=== PATIENT | female | born 2000 | race Caucasian/White ===

== ENCOUNTER 2021-07-21 13:56 | Emergency (ER) | payer MEDICAID ==
[~2021-07-21] VITALS: Ht 172.7 cm; Wt 56.2 kg
[2021-07-21] MEDS ORDERED: LACTATED RINGERS 1,000 ML IV STA ×2 (14:25→15:56)
--- NOTE | 2021-07-21 14:28 | ED Abdominal Pain ---
General Stated Complaint: DEHYDRATION/VOMITING Source of Information: Patient Exam Limitations: No Limitations (MAURILIO BENJAMIN) History of Present Illness Date Seen by Provider: Jul 21, 2021 Time Seen by Provider: 14:25 Initial Comments Patient is a 20-year-old female presents ED with vomiting. Vomiting over the past 2 days. She reports at least 10+ episodes of vomiting daily that is green. Denies of any hematemesis. Decreased bowel movements and urination. She went to [facility] 2 days ago and yesterday and receive IV fluids and states she had a viral infection. She states she is having weakness and fatigue feels dehydrated. She reports mid upper abdominal discomfort described as cramping and fairly constant without radiation. No history of previous abdominal surgery. Not concern for . No vaginal bleeding, dysuria, hematuria, headache, dizziness, sore throat, ear pain. (MAURILIO BENJAMIN) Allergies and Home Medications Allergies Coded Allergies: No Known Drug Allergies (Unverified , 07/21/21) Patient Home Medication List Home Medication List Reviewed: Yes (MAURILIO BENJAMIN) Promethazine HCl (Promethazine Tablet) 25 Mg Tablet, 25 MG PO Q6H PRN for NAUSEA/VOMITING Prescribed by: KATIE MONTERROSO on 07/21/21 1610 Review of Systems Review of Systems Constitutional: No chills, No diaphoresis, No fever; malaise, weakness EENTM: No Blurred Vision, No Eye Pain, No Ear Drainage, No Mouth Pain, No Mouth Swelling Respiratory: Denies Cough, Denies Orthopnea, Denies SOA With Exertion, Denies SOA at Rest Cardiovascular: Denies Chest Pain, Denies Edema, Denies Irregular Heart Rate Gastrointestinal: Abdominal Pain; Denies Diarrhea; Nausea, Poor Appetite, Vomiting Genitourinary: Denies Burning, Denies Discharge Musculoskeletal: No back pain, No joint pain Skin: No change in color, No change in hair/nails Psychiatric/Neurological: Denies Anxiety, Denies Depressed (MAURILIO BENJAMIN) All Other Systems Reviewed Negative Unless Noted: Yes (MAURILIO BENJAMIN) Physical Exam Vital Signs Vital Signs - First Documented 07/21/21 07/21/21 14:13 16:18 Temp 36.4 Pulse 61 Resp 16 B/P (MAP) 110/62 (78) Pulse Ox 100 O2 Delivery Room Air (ANABEL BETTS MD) Vital Signs Capillary Refill : (MAURILIO BENJAMIN) Height/Weight/BMI Height: '" Weight: lbs. oz. kg; BMI Method: General Appearance: WD/WN, no apparent distress HEENT: PERRL/EOMI, normal ENT inspection, TMs normal, pharynx normal Neck: non-tender, full range of motion, supple, normal inspection Respiratory: chest non-tender, lungs clear, normal breath sounds, no respiratory distress, no accessory muscle use Cardiovascular: regular rate, rhythm, no edema, no gallop, no JVD Gastrointestinal: normal bowel sounds, soft, no organomegaly, no pulsatile mass, tenderness (Mid epigastric tenderness on palpation. 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, no motor/sensory deficits, alert, normal mood/affect, oriented x 3 Skin: normal color, warm/dry (MAURILIO BENJAMIN) Progress/Results/Core Measures Results/Orders Lab Results Laboratory Tests Test 07/21/21 14:30 07/21/21 14:56 07/21/21 15:02 Range/Units White Blood Count 11.1 H 4.3-11.0 10^3/uL Red Blood Count 4.62 3.80-5.11 10^6/uL Hemoglobin 14.1 11.5-16.0 g/dL Hematocrit 41 35-52 % Mean Corpuscular Volume 88 80-99 fL Mean Corpuscular Hemoglobin 31 25-34 pg Mean Corpuscular Hemoglobin Concent 35 32-36 g/dL Red Cell Distribution Width 11.6 10.0-14.5 % Platelet Count 322 130-400 10^3/uL Mean Platelet Volume 9.0 9.0-12.2 fL Immature Granulocyte % (Auto) 0 % Neutrophils (%) (Auto) 83 H 42-75 % Lymphocytes (%) (Auto) 12 12-44 % Monocytes (%) (Auto) 4 0-12 % Eosinophils (%) (Auto) 0 0-10 % Basophils (%) (Auto) 0 0-10 % Neutrophils # (Auto) 9.2 H 1.8-7.8 10^3/uL Lymphocytes # (Auto) 1.4 1.0-4.0 10^3/uL Monocytes # (Auto) 0.4 0.0-1.0 10^3/uL Eosinophils # (Auto) 0.0 0.0-0.3 10^3/uL Basophils # (Auto) 0.0 0.0-0.1 10^3/uL Immature Granulocyte # (Auto) 0.0 0.0-0.1 10^3/uL Sodium Level 139 135-145 MMOL/L Potassium Level 3.5 L 3.6-5.0 MMOL/L Chloride Level 103 98-107 MMOL/L Carbon Dioxide Level 20 L 21-32 MMOL/L Anion Gap 16 H 5-14 MMOL/L Blood Urea Nitrogen 10 7-18 MG/DL Creatinine 0.82 0.60-1.30 MG/DL Estimat Glomerular Filtration Rate 106 BUN/Creatinine Ratio 12 Glucose Level 99 70-105 MG/DL Calcium Level 9.6 8.5-10.1 MG/DL Corrected Calcium 8.5-10.1 MG/DL Magnesium Level 1.9 1.6-2.4 MG/DL Total Bilirubin 0.9 0.1-1.0 MG/DL Aspartate Amino Transf (AST/SGOT) 18 5-34 U/L Alanine Aminotransferase (ALT/SGPT) 18 0-55 U/L Alkaline Phosphatase 40 40-136 U/L Total Protein 7.6 6.4-8.2 GM/DL Albumin 4.7 H 3.2-4.5 GM/DL Lipase 19 8-78 U/L Serum Test, Qualitative NEGATIVE NEGATIVE Influenza Type A (RT-PCR) Not Detected Not Detecte Influenza Type B (RT-PCR) Not Detected Not Detecte SARS-CoV-2 RNA (RT-PCR) Not Detected Not Detecte Urine Color YELLOW Urine Clarity CLEAR Urine pH 7.5 5-9 Urine Specific [place] 1.015 L 1.016-1.022 Urine Protein NEGATIVE NEGATIVE Urine Glucose (UA) NEGATIVE NEGATIVE Urine Ketones 3+ H NEGATIVE Urine Nitrite NEGATIVE NEGATIVE Urine Bilirubin NEGATIVE NEGATIVE Urine Urobilinogen 1.0 < = 1.0 MG/DL Urine Leukocyte Esterase NEGATIVE NEGATIVE Urine RBC (Auto) 3+ H NEGATIVE Urine RBC 25-50 H /HPF Urine WBC 0-2 /HPF Urine Squamous Epithelial Cells 0-2 /HPF Urine Crystals NONE /LPF Urine Bacteria TRACE /HPF Urine Casts NONE /LPF Urine Mucus NEGATIVE /LPF Urine Other FEW CLUE CELLS /HPF Urine Culture Indicated NO Urine Opiates Screen NEGATIVE NEGATIVE Urine Oxycodone Screen NEGATIVE NEGATIVE Urine Methadone Screen NEGATIVE NEGATIVE Urine Propoxyphene Screen NEGATIVE NEGATIVE Urine Barbiturates Screen NEGATIVE NEGATIVE Ur Tricyclic Antidepressants Screen NEGATIVE NEGATIVE Urine Phencyclidine Screen NEGATIVE NEGATIVE Urine Amphetamines Screen NEGATIVE NEGATIVE Urine Methamphetamines Screen NEGATIVE NEGATIVE Urine Benzodiazepines Screen NEGATIVE NEGATIVE Urine Cocaine Screen NEGATIVE NEGATIVE Urine Cannabinoids Screen POSITIVE H NEGATIVE (ANABEL BETTS MD) Medications Given in ED Current Medications Medications Dose Ordered Sig/Josesito Route Start Time Stop Time Status Last Admin Dose Admin Iohexol 100 ml ONCE ONCE IV 07/21/21 15:15 07/21/21 15:16 DC 07/21/21 15:15 70 ML Promethazine HCl 25 mg ONCE ONCE IVP 07/21/21 14:30 07/21/21 14:33 DC 07/21/21 14:40 25 MG Sodium Chloride 100 ml ONCE ONCE IV 07/21/21 15:15 07/21/21 15:16 DC 07/21/21 15:15 80 ML (ANABEL BETTS MD) Vital Signs/I&O 07/21/21 07/21/21 14:13 16:18 Temp 36.4 Pulse 61 79 Resp 16 15 B/P (MAP) 110/62 (78) 118/67 Pulse Ox 100 O2 Delivery Room Air Room Air (ANABEL BETTS MD) Departure Communication (PCP) Patient with continuous vomiting over the past 3 days. This is her third visit in 3 days with [address] [facility] in [place]. She was given IV fluids and discharged. Was discharged with Zofran without much improvement. On arrival her vital signs stable. Moist mucous membranes. Patient lab work showed white blood count 11.1. Normal kidney function liver function pancreatic function. Does have mid upper abdominal discomfort. Has not been able to eat or drink. Decreased bowel movements and urination. Did urinate twice here did show some dehydration. Was given LR liter here. Potassium of 3.5. She refused IV potassium. She refused oral potassium. Urinalysis negative for infection or . CT on pelvis concerning for some mild colitis. No family history of ulcerative colitis. No bloody stool, hematemesis suggesting more of a invasive infectious etiology. She was positive for marijuana which be concern for hyperemesis cannabis syndrome however she may have some underlying viral infection. COVID influenza negative. Patient tolerating p.o. fluids at bedside. Will discharge with Phenergan. Discussed follow-up for further evaluation with PCP in 2 to 3 days. If any worsening symptoms return back to ED. recommend Pedialyte for at home. Stressed importance of hydration (MAURILIO BENJAMIN) Impression Primary Impression: Nausea and vomiting Disposition: HOME, SELF-CARE Condition: Stable Departure-Patient Inst. Decision time for Depature: 16:08 (MAURILIO BENJAMIN) Referrals: [facility] [place] Primary Care Physician YAYA ALVARENGA (Family) Primary Care Physician Patient Instructions: Nausea and Vomiting, Adult Scripts Promethazine HCl (Promethazine Tablet) 25 Mg Tablet 25 MG PO Q6H PRN for NAUSEA/VOMITING, #12 TAB Prov: MAURILIO BENJAMIN 07/21/21 ATTENDING PHYSICIAN NOTE: I was physically present as attending physician in the emergency department du ring the care of this patient, but I was not directly involved in the decision making or delivery of care for this patient. (ANABEL BETTS MD) MAURILIO BENJAMIN Jul 21, 2021 14:27 ANABEL BETTS MD Jul 21, 2021 19:18
[2021-07-21] MEDS ORDERED: PROMETHAZINE INJ 25 MG/ML (PHENERGAN) AMP IVP ONE (14:30)
[2021-07-21 14:36] LABS: BASOPHILS % (AUTO) 0 % (0-10); EOSINOPHILS % (AUTO) 0 % (0-10); HEMATOCRIT 41 % (35-52); HEMOGLOBIN 14.1 g/dL (11.5-16.0); LYMPHOCYTES # (AUTO) 1.4 10^3/uL (1.0-4.0); LYMPHOCYTES % (AUTO) 12 % (12-44); MEAN CORPUSCULAR HEMOGLOBIN 31 pg (25-34); MEAN CORPUSCULAR HGB CONC 35 g/dL (32-36); MEAN CORPUSCULAR VOLUME 88 fL (80-99); MONOCYTES # (AUTO) 0.4 10^3/uL (0.0-1.0); MONOCYTES % (AUTO) 4 % (0-12); NEUTROPHILS # (AUTO) 9.2 10^3/uL (1.8-7.8); NEUTROPHILS % (AUTO) 83 % (42-75); PLATELET COUNT 322 10^3/uL (130-400); WHITE BLOOD COUNT 11.1 10^3/uL (4.3-11.0)
[2021-07-21 14:46] LABS: ALBUMIN 4.7 GM/DL (3.2-4.5); CHLORIDE 103 MMOL/L (98-107); POTASSIUM 3.5 MMOL/L (3.6-5.0); SODIUM 139 MMOL/L (135-145)
[2021-07-21 14:47] LABS: CALCIUM 9.6 MG/DL (8.5-10.1)
[2021-07-21 14:48] LABS: GLUCOSE 99 MG/DL (70-105); TOTAL PROTEIN 7.6 GM/DL (6.4-8.2)
[2021-07-21 14:49] LABS: CARBON DIOXIDE 20 MMOL/L (21-32)
[2021-07-21 14:50] LABS: BILIRUBIN,TOTAL 0.9 MG/DL (0.1-1.0)
[2021-07-21 14:52] LABS: ALKALINE PHOSPHATASE 40 U/L (40-136); CREATININE SERUM 0.82 MG/DL (0.60-1.30); GFR ESTIMATED 106
[2021-07-21 14:53] LABS: BUN/CREATININE RATIO 12
[2021-07-21 14:55] LABS: ALANINE AMINOTRANSFERASE 18 U/L (0-55)
[2021-07-21 14:56] LABS: MAGNESIUM 1.9 MG/DL (1.6-2.4)
[2021-07-21 14:57] LABS: LIPASE 19 U/L (8-78)
[2021-07-21 15:07] LABS: BILIRUBIN,URINE NEGATIVE (NEGATIVE); CLARITY,URINE CLEAR; COLOR,URINE YELLOW; GLUCOSE, URINE (UA) NEGATIVE (NEGATIVE); KETONES,URINE 3+ (NEGATIVE); LEUKOCYTE ESTERASE ,URINE NEGATIVE (NEGATIVE); NITRITE,URINE NEGATIVE (NEGATIVE); PH,URINE 7.5 (5-9); PROTEIN,URINE NEGATIVE (NEGATIVE)
[2021-07-21 15:14] LABS: BACTERIA,URINE TRACE /HPF; RBC,URINE 25-50 /HPF; SQUAMOUS EPITHELIAL CELL,UR 0-2 /HPF; URINE OTHER FEW CLUE CELLS /HPF; WBC,URINE 0-2 /HPF
[2021-07-21] MEDS ORDERED: IOHEXOL 350 MG/ML 100 ML (OMNIPAQUE 350) VIAL IV ONE (15:15)
[2021-07-21] MEDS ORDERED: HOLD METFORMIN - RECEIVED CONTRAST 20 ML VIAL IV SCH (15:15)
[2021-07-21] MEDS ORDERED: NS 100 ML (IVPB) BAG IV ONE (15:15)
[2021-07-21 15:18] LABS: AMPHETAMINE SCREEN, URINE NEGATIVE (NEGATIVE); BARBITURATE SCREEN URINE NEGATIVE (NEGATIVE); BENZODIAZEPINES SCREEN URINE NEGATIVE (NEGATIVE); CANNABINOID SCREEN, URINE POSITIVE (NEGATIVE); COCAINE SCREEN URINE NEGATIVE (NEGATIVE); METHADONE STAT NEGATIVE (NEGATIVE); METHAMPHETAMINE SCREEN URINE S NEGATIVE (NEGATIVE); OPIATE SCREEN URINE NEGATIVE (NEGATIVE); OXYCODONE STAT NEGATIVE (NEGATIVE); PROPOXYPHENE STAT NEGATIVE (NEGATIVE); TRICYCLIC ANTIDEPRESSANTS SCRE NEGATIVE (NEGATIVE)
--- NOTE | 2021-07-21 15:38 | Diagnostic Imaging Report ---
PROCEDURE: CT abdomen and pelvis with contrast. TECHNIQUE: Multiple contiguous axial images were obtained through the abdomen and pelvis after administration of intravenous contrast. Auto Exposure Controls were utilized during the CT exam to meet ALARA standards for radiation dose reduction. All CT scans use one or more of the following dose optimizing techniques: automated exposure control, MA and/or KvP adjustment based on patient size and exam type or iterative reconstruction. INDICATION: Nausea and vomiting. COMPARISON: None. FINDINGS: While the right colon is nondistended, limiting its evaluation, there does appear to be some genuine hypodense thickening of the right colon at the cecum ascending level and through the hepatic flexure into at least the proximal transverse colon. Findings are consistent with nonspecific colitis. There is no evidence for proctitis. The sigmoid colon unremarkable. The descending colon, while not distended appears noninfected and unremarkable. Associated with the edematous thickened ascending colon, there is very slight pericolonic stranding and edema. I am unable to identify the patient's appendix with any confidence but the appearance is not consistent with appendicitis. There is a trace pelvic free fluid within the cul-de-sac. Its volume is typically encountered in female patients of this age. There is no acute adnexal abnormality. The unobstructed kidneys appear normal. The adrenals are negative. The spleen, pancreas, gallbladder, bile ducts and liver are unremarkable. Lung bases nonacute. No basilar pleural fluid. IMPRESSION: 1. Findings are felt suspect for mild ascending and proximal transverse colitis without abscess, obstruction or perforation. Nonvisualization of the appendix but the appearance was not felt suggestive of appendicitis. Small volume pelvic free fluid is within normal physiologic limits. 2. Unobstructed and unremarkable small bowel. No hepatobiliary or urinary tract pathology. No acute adnexal abnormality. Dictated by: Dictated on workstation # [id number]
[2021-07-21] MEDS ORDERED: POTASSIUM CL 10MEQ/50ML IVPB 50 ML IV ONE (16:00)
[2021-07-21] MEDS ORDERED: PROM25TA14 PO (16:10)
[2021-07-21 16:18] VITALS: BP 118/67
== END 2021-07-21 16:18 | disposition home or self-care (01) ==
LOC: EDUNIT# 13:56 → ER 13:58
DX: R11.2 Nausea with vomiting, unspecified (principal); Z32.02 Encounter for pregnancy test, result negative
CPT/HCPCS: 36415; 74177; 80053; 80306; 81000; 83690; 83735; 84703; 85025; 87636

== ENCOUNTER 2021-07-22 22:38 | Emergency (ER) | payer MEDICAID ==
[~2021-07-22] VITALS: Ht 172.7 cm; Wt 56.2 kg
[~2021-07-22 22:38] MED LIST: PROM25TA14 PO
[2021-07-22] MEDS ORDERED: LACTATED RINGERS 1,000 ML IV ONE (23:00)
[2021-07-22] MEDS ORDERED: ONDANSETRON 4 MG/2 ML (SDV) Z0FRAN IVP ONE (23:00)
--- NOTE | 2021-07-22 23:23 | ED GI ---
General Chief Complaint: Abdominal/GI Problems Stated Complaint: VOMITING Nursing Triage Note: c/o of nausea and vomitting for 4 days. Reports that she has been seen in a [place] ED on thursday and went to her PCP today. She has a colonocopy scheduled and has vomitted up her nausea medication per self report Source of Information: Patient, Other (SISTER ) History of Present Illness Date Seen by Provider: Jul 22, 2021 Time Seen by Provider: 22:55 Initial Comments PT ARRIVES VIA POV FROM HOME, WITH SISTER C/O NAUSEA/VOMITING AND ABDOMINAL PAIN SINCE Thursday07/19/21 STATES SHE CAN'T KEEP ANYTHING DOWN--ATE RAMEN NOODLES TODAY AND TURKMEN FRIES A FEW DAYS AGO. HAS BEEN DRINKING WATER AND PEDIALYTE. HAS VOMITED >10 < 20 TIMES TODAY HAD DIARRHEA X 1 TODAY, LAST BM BEFORE THAT WAS 4 DAYS AGO ABDOMINAL PAIN IS GENERALIZED NOTHING WORSENS OR IMPROVES PAIN LAST VOID WAS 3 HOURS AGO NO FEVER STATES SHE IS DIZZY AND HER FINGERS ARE NUMB AND TINGLY AND HER CHEST FEELS LIKE IT'S VIBRATING--PT IS VERY ANXIOUS ON ARRIVAL NO CHEST PAIN NO SHORTNESS OF BREATH, BUT PT IS HYPERVENTILATING ON ARRIVAL WITH HARSH DRY HEAVING WAS SEEN HERE FOR THE FIRST TIME, YESTERDAY, FOR THIS SAME PROBLEM--WORK UP INCLUDING CT SCAN AND LAB ESSENTIALLY NORMAL--CT SCAN HAD NON-SPECIFIC FINDINGS OF POSSIBLE COLITIS. WAS GIVEN RX FOR PROMETHAZINE--STATES SHE TOOK 1 EARLIER TODAY, BUT DID NOT KEEP IT DOWN PT WAS SEEN IN AN ER IN [place] OVER THE WEEKEND--WAS PRESCRIBED ZOFRAN ON 07/19/21--HAS NOT TAKEN ANY PT WAS SEEN AT [facility] TODAY FOR THIS PROBLEM, AND WAS REFERRED TO DR. RODRIGES FOR A COLONOSCOPY AND EGD--THIS HAS NOT BEEN SCHEDULED YET PT DENIES ANY HISTORY OF SIMILAR NO PRIOR GI PROBLEMS OR ABDOMINAL SURGERIES PT SMOKES MARIJUANA DAILY AND VAPES NICOTINE--STATES SHE HAS NOT USED EITHER FOR THE LAST 5 DAYS DENIES ALCOHOL USE. ON MEDICATION FOR ADHD, BUT HAS NOT HAD ANY FOR A MONTH LMP--NOW. NORMAL. NO CONTROL [facility] Allergies and Home Medications Allergies Coded Allergies: No Known Drug Allergies (Unverified , 07/21/21) Patient Home Medication List Home Medication List Reviewed: Yes Metoclopramide HCl (Reglan) 10 Mg Tablet, 10 MG PO QID Prescribed by: JACQUELYN MCKEON on 07/23/21116 Ondansetron (Ondansetron Odt) 8 Mg Tab.rapdis, 8 MG PO Q6H Prescribed by: JACQUELYN MCKEON on 07/23/21116 Pantoprazole Sodium (Protonix) 40 Mg Tablet.dr, 40 MG PO DAILY Prescribed by: JACQUELYN MCKEON on 07/23/21116 Promethazine HCl (Promethazine Tablet) 25 Mg Tablet, 25 MG PO Q6H PRN for NAUSEA/VOMITING Prescribed by: KATIE MONTERROSO on 07/21/211609 Promethazine HCl (Promethazine Suppository) 25 Mg Supp.rect, 25 MG RC Q6 Prescribed by: JACQUELYN MCKEON on 07/23/21116 Review of Systems Review of Systems Constitutional: dizziness EENTM: No Symptoms Reported Respiratory: See HPI Cardiovascular: See HPI Gastrointestinal: See HPI Genitourinary: No Symptoms Reported Musculoskeletal: no symptoms reported Skin: no symptoms reported Psychiatric/Neurological: See HPI Endocrine: No Symptoms Reported Hematologic/Lymphatic: No Symptoms Reported Past Egkotyq-Ejdrmo-Gwyazr Hx Patient Social History Tobacco Use?: No Use of E-Cig and/or Vaping dev: Yes E-Cig or Vaping type used: Nicotine Use of E-Cig and/or Vaping Woody: Current Everyday User Substance use?: Yes Substance type: Marijuana Substance frequency: Daily Alcohol Use?: No Past Medical History Surgeries: No Respiratory: No Cardiac: No Neurological: No : No Last Menstrual Period: Jul 22, 2021 Reproductive Disorders: No Genitourinary: No Gastrointestinal: No Musculoskeletal: No Endocrine: No HEENT: No Cancer: No Psychosocial: Yes ADD/ADHD Integumentary: No Blood Disorders: No Physical Exam Vital Signs Vital Signs - First Documented 07/22/21 22:49 Temp 36.1 Pulse 74 Resp 24 B/P (MAP) 141/98 (112) Pulse Ox 100 O2 Delivery Room Air Capillary Refill : Less Than 3 Seconds Height/Weight/BMI Height: '" Weight: lbs. oz. 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3 9.0-12.2 fL Immature Granulocyte % (Auto) 0 % Neutrophils (%) (Auto) 74 42-75 % Lymphocytes (%) (Auto) 19 12-44 % Monocytes (%) (Auto) 6 0-12 % Eosinophils (%) (Auto) 0 0-10 % Basophils (%) (Auto) 0 0-10 % Neutrophils # (Auto) 9.9 H 1.8-7.8 10^3/uL Lymphocytes # (Auto) 2.5 1.0-4.0 10^3/uL Monocytes # (Auto) 0.9 0.0-1.0 10^3/uL Eosinophils # (Auto) 0.0 0.0-0.3 10^3/uL Basophils # (Auto) 0.1 0.0-0.1 10^3/uL Immature Granulocyte # (Auto) 0.1 0.0-0.1 10^3/uL Sodium Level 143 135-145 MMOL/L Potassium Level 3.3 L 3.6-5.0 MMOL/L Chloride Level 103 98-107 MMOL/L Carbon Dioxide Level 20 L 21-32 MMOL/L Anion Gap 20 H 5-14 MMOL/L Blood Urea Nitrogen 13 7-18 MG/DL Creatinine 0.98 0.60-1.30 MG/DL Estimat Glomerular Filtration Rate 85 BUN/Creatinine Ratio 13 Glucose Level 109 H 70-105 MG/DL Calcium Level 9.9 8.5-10.1 MG/DL Corrected Calcium 8.5-10.1 MG/DL Magnesium Level 2.3 1.6-2.4 MG/DL Total Bilirubin 0.6 0.1-1.0 MG/DL Aspartate Amino Transf (AST/SGOT) 18 5-34 U/L Alanine Aminotransferase (ALT/SGPT) 19 0-55 U/L Alkaline Phosphatase 48 40-136 U/L Total Protein 8.2 6.4-8.2 GM/DL Albumin 5.1 H 3.2-4.5 GM/DL Amylase Level 127 H 25-125 U/L Lipase 32 8-78 U/L Serum Test, Qualitative NEGATIVE NEGATIVE Serum Alcohol < 10 <10 MG/DL Urine Color YELLOW Urine Clarity CLEAR Urine pH 8.0 5-9 Urine Specific [place] 1.020 1.016-1.022 Urine Protein NEGATIVE NEGATIVE Urine Glucose (UA) NEGATIVE NEGATIVE Urine Ketones 1+ H NEGATIVE Urine Nitrite NEGATIVE NEGATIVE Urine Bilirubin NEGATIVE NEGATIVE Urine Urobilinogen 1.0 < = 1.0 MG/DL Urine Leukocyte Esterase NEGATIVE NEGATIVE Urine RBC (Auto) NEGATIVE NEGATIVE Urine RBC NONE /HPF Urine WBC 0-2 /HPF Urine Squamous Epithelial Cells 0-2 /HPF Urine Crystals NONE /LPF Urine Bacteria TRACE /HPF Urine Casts NONE /LPF Urine Mucus NEGATIVE /LPF Urine Culture Indicated NO Urine Test NEGATIVE NEGATIVE Urine Opiates Screen NEGATIVE NEGATIVE Urine Oxycodone Screen NEGATIVE NEGATIVE Urine Methadone Screen NEGATIVE NEGATIVE Urine Propoxyphene Screen NEGATIVE NEGATIVE Urine Barbiturates Screen NEGATIVE NEGATIVE Ur Tricyclic Antidepressants Screen NEGATIVE NEGATIVE Urine Phencyclidine Screen NEGATIVE NEGATIVE Urine Amphetamines Screen NEGATIVE NEGATIVE Urine Methamphetamines Screen NEGATIVE NEGATIVE Urine Benzodiazepines Screen NEGATIVE NEGATIVE Urine Cocaine Screen NEGATIVE NEGATIVE Urine Cannabinoids Screen POSITIVE H NEGATIVE My Orders Orders - JACQUELYN MCKEON DO Ed Iv/Invasive Line Start (07/22/21 22:59) Alcohol (07/22/21 22:59) Amylase (07/22/21 22:59) Cbc With Automated Diff (07/22/21 22:59) Comprehensive Metabolic Panel (07/22/21 22:59) Drug Screen Stat (Urine) (07/22/21 22:59) Hcg,Qualitative Urine (07/22/21 22:59) Magnesium (07/22/21 22:59) Ua Culture If Indicated (07/22/21 22:59) Ed Iv/Invasive Line Start (07/22/21 22:59) Lactated Ringers (Lr 1000 Ml Iv Solution (07/22/21 23:00) Ondansetron Injection (Zofran Injectio (07/22/21 23:00) Pantoprazole Injection (Protonix Injecti (07/22/21 23:30) Metoclopramide Injection (Reglan Injecti (07/22/21 23:30) Diphenhydramine Injection (Benadryl Inje (07/22/21 23:30) Ed Iv/Invasive Line Start (07/23/21 00:06) Lactated Ringers (Lr 1000 Ml Iv Solution (07/23/21 00:15) Hcg,Qualitative Serum (07/23/21 00:06) Lipase (07/23/21 00:06) Lactated Ringers (Lr 1000 Ml Iv Solution (07/23/21 00:07) Rx-Ondansetron Po (Rx-Zofran Po) (07/23/21 01:19) Rx-Promethazine Hcl (Rx-Phenergan Supp) (07/23/21 01:30) Medications Given in ED Current Medications Medications Dose Ordered Sig/Josesito Route Start Time Stop Time Status Last Admin Dose Admin Diphenhydramine HCl 50 mg ONCE ONCE IVP 07/22/21 23:30 07/22/21 23:31 DC 07/22/21 23:27 50 MG Lactated Ringer's 1,000 ml @ 0 mls/hr Q0M ONCE IV 07/22/21 23:00 07/22/21 23:15 DC 07/22/21 23:11 999 MLS/HR Lactated Ringer's 1,000 ml @ 0 mls/hr Q0M ONCE IV 07/23/21 00:15 07/23/21 00:16 DC 07/23/21 00:15 999 MLS/HR Metoclopramide HCl 10 mg ONCE ONCE IVP 07/22/21 23:30 07/22/21 23:31 DC 07/22/21 23:27 10 MG Ondansetron HCl 8 mg ONCE ONCE IVP 07/22/21 23:00 07/22/21 23:15 DC 07/22/21 23:11 8 MG Pantoprazole 40 mg ONCE ONCE IV 07/22/21 23:30 07/22/21 23:31 DC 07/22/21 23:27 40 MG Promethazine HCl 25 mg Q4H PRN SD 07/23/21 01:30 07/23/21 01:44 DC 07/23/21 01:29 25 MG Vital Signs/I&O 07/22/21 07/22/21 07/23/21 22:49 23:43 01:35 Temp 36.1 36.4 Pulse 74 65 Resp 24 16 B/P (MAP) 141/98 (112) 136/90 Pulse Ox 100 100 O2 Delivery Room Air Room Air Blood Pressure Mean: 112 Progress Progress Note : Progress Note GIVEN IV FLUIDS, ZOFRAN, PROTONIX, REGLAN AND BENADRYL WITH MUCH IMPROVEMENT IN SYMPTOMS. PT RESTED QUIETLY FOR REMAINDER OF ER STAY Departure Impression Primary Impression: Nausea and vomiting Additional Impressions: Abdominal pain Marijuana use POSSIBLE CANNIBIS HYPEREMESIS SYNDROME Disposition: HOME, SELF-CARE Condition: Improved Departure-Patient Inst. Decision time for Depature: 01:10 Referrals: [facility] (PCP) Primary Care Physician YAYA ALVARENGA (Family) Primary Care Physician Patient Instructions: Cannabis Hyperemesis Syndrome, Nausea and Vomiting, Adult ED, Abdominal Pain, Adult ED Add. Discharge Instructions: CLEAR LIQUIDS--WATER, BROTH, JELLO, GATORADE TOMORROW IF YOU ARE BETTER, ADD BRATS DIET TO CLEAR LIQUIDS--BANANAS, RICE, APPLESAUCE, TOAST, SALTINES FOLLOW UP WITH [facility] AND DR. RODRIGES FOR FURTHER All discharge instructions reviewed with patient and/or family. Voiced understanding. Scripts Metoclopramide HCl (Reglan) 10 Mg Tablet 10 MG PO QID, #20 TAB Prov: JACQUELYN MCKEON DO 07/23/21 Promethazine HCl (Promethazine Suppository) 25 Mg Supp.rect 25 MG RC Q6 for Nausea/Vomiting, #10 SUPP.RECT Prov: ISIDRA MCKEONA K DO 07/23/21 Pantoprazole Sodium (Protonix) 40 Mg Tablet.dr 40 MG PO DAILY, #15 TAB Prov: JACQUELYN MCKEON DO 07/23/21 Ondansetron (Ondansetron Odt) 8 Mg Tab.rapdis 8 MG PO Q6H, #10 TAB Prov: JACQUELYN MCKEON DO 07/23/21 JACQUELYN MCKEON DO Jul 22, 2021 23:23
[2021-07-22] MEDS ORDERED: diphenhydrAMINE 50 MG/ML INJ (BENADRYL) IVP ONE (23:30)
[2021-07-22] MEDS ORDERED: METOCLOPRAMIDE INJ 10 MG/2 ML (REGLAN) IVP ONE (23:30)
[2021-07-22] MEDS ORDERED: PANTOPRAZOLE 40 MG (PROTONIX) VIAL IV ONE (23:30)
[2021-07-22 23:35] LABS: ALBUMIN 5.1 GM/DL (3.2-4.5); CHLORIDE 103 MMOL/L (98-107); POTASSIUM 3.3 MMOL/L (3.6-5.0); SODIUM 143 MMOL/L (135-145)
[2021-07-22 23:36] LABS: AMYLASE 127 U/L (25-125); CALCIUM 9.9 MG/DL (8.5-10.1)
[2021-07-22 23:37] LABS: GLUCOSE 109 MG/DL (70-105)
[2021-07-22 23:38] LABS: TOTAL PROTEIN 8.2 GM/DL (6.4-8.2)
[2021-07-22 23:39] LABS: BILIRUBIN,TOTAL 0.6 MG/DL (0.1-1.0); CARBON DIOXIDE 20 MMOL/L (21-32)
[2021-07-22 23:41] LABS: ALKALINE PHOSPHATASE 48 U/L (40-136); CREATININE SERUM 0.98 MG/DL (0.60-1.30); GFR ESTIMATED 85
[2021-07-22 23:42] LABS: BUN/CREATININE RATIO 13
[2021-07-22 23:44] LABS: ALANINE AMINOTRANSFERASE 19 U/L (0-55); MAGNESIUM 2.3 MG/DL (1.6-2.4)
[2021-07-22 23:55] LABS: BASOPHILS # (AUTO) 0.1 10^3/uL (0.0-0.1); BASOPHILS % (AUTO) 0 % (0-10); EOSINOPHILS % (AUTO) 0 % (0-10); HEMATOCRIT 44 % (35-52); HEMOGLOBIN 15.5 g/dL (11.5-16.0); LYMPHOCYTES # (AUTO) 2.5 10^3/uL (1.0-4.0); LYMPHOCYTES % (AUTO) 19 % (12-44); MEAN CORPUSCULAR HEMOGLOBIN 31 pg (25-34); MEAN CORPUSCULAR HGB CONC 35 g/dL (32-36); MEAN CORPUSCULAR VOLUME 88 fL (80-99); MEAN PLATELET VOLUME 9.3 fL (9.0-12.2); MONOCYTES # (AUTO) 0.9 10^3/uL (0.0-1.0); MONOCYTES % (AUTO) 6 % (0-12); NEUTROPHILS # (AUTO) 9.9 10^3/uL (1.8-7.8); NEUTROPHILS % (AUTO) 74 % (42-75); PLATELET COUNT 404 10^3/uL (130-400); WHITE BLOOD COUNT 13.5 10^3/uL (4.3-11.0)
[2021-07-23] MEDS ORDERED: LACTATED RINGERS 1,000 ML IV ONE ×2 (00:07→00:15)
[2021-07-23 00:51] LABS: BILIRUBIN,URINE NEGATIVE (NEGATIVE); CLARITY,URINE CLEAR; COLOR,URINE YELLOW; GLUCOSE, URINE (UA) NEGATIVE (NEGATIVE); KETONES,URINE 1+ (NEGATIVE); LEUKOCYTE ESTERASE ,URINE NEGATIVE (NEGATIVE); NITRITE,URINE NEGATIVE (NEGATIVE); PROTEIN,URINE NEGATIVE (NEGATIVE)
[2021-07-23 01:04] LABS: BACTERIA,URINE TRACE /HPF; SQUAMOUS EPITHELIAL CELL,UR 0-2 /HPF; WBC,URINE 0-2 /HPF
[2021-07-23 01:05] LABS: AMPHETAMINE SCREEN, URINE NEGATIVE (NEGATIVE); BARBITURATE SCREEN URINE NEGATIVE (NEGATIVE); BENZODIAZEPINES SCREEN URINE NEGATIVE (NEGATIVE); CANNABINOID SCREEN, URINE POSITIVE (NEGATIVE); COCAINE SCREEN URINE NEGATIVE (NEGATIVE); HCG,QUALITATIVE URINE NEGATIVE (NEGATIVE); METHADONE STAT NEGATIVE (NEGATIVE); METHAMPHETAMINE SCREEN URINE S NEGATIVE (NEGATIVE); OPIATE SCREEN URINE NEGATIVE (NEGATIVE); OXYCODONE STAT NEGATIVE (NEGATIVE); PROPOXYPHENE STAT NEGATIVE (NEGATIVE); TRICYCLIC ANTIDEPRESSANTS SCRE NEGATIVE (NEGATIVE)
[2021-07-23] MEDS ORDERED: PANT40TA2 PO (01:17)
[2021-07-23] MEDS ORDERED: ONDA8TAB13 PO (01:17)
[2021-07-23] MEDS ORDERED: METO-310 PO (01:17)
[2021-07-23] MEDS ORDERED: PROM25SU44 RC (01:17)
[2021-07-23] MEDS ORDERED: RX-ONDANSETRON 4 MG ODT (ZOFRAN) PPK #4 PO STA (01:19)
[2021-07-23] MEDS ORDERED: RX-PHENERGAN 25 MG SUPP PPK#3 PR PRN (01:30)
[2021-07-23 01:35] VITALS: BP 136/90
== END 2021-07-23 01:40 | disposition home or self-care (01) ==
LOC: EDUNIT# 22:38 → ER 22:40
DX: R11.2 Nausea with vomiting, unspecified (principal); R10.84 Generalized abdominal pain; F12.90 Cannabis use, unspecified, uncomplicated; R06.4 Hyperventilation; F17.290 Nicotine dependence, other tobacco product, uncomplicated
CPT/HCPCS: 80053; 80306; 81000; 82150; 83690; 83735; 84703 ×2; 85025; 99284; G0480; 36415; 80320

== ENCOUNTER 2021-09-11 07:12 | Outpatient (CLI) | payer MEDICAID ==
[~2021-09-11] VITALS: Ht 172.7 cm; Wt 57.2 kg
[~2021-09-11 07:12] MED LIST changes: +METO-310 PO; +ONDA8TAB13 PO; +PANT40TA2 PO; +PROM25SU44 RC
== END 2021-09-11 14:28 | disposition home or self-care (01) ==
LOC: PREOP 07:12
PROVIDERS: ATTEND Surgery
DX: Z01.818 Encounter for other preprocedural examination (principal)

== ENCOUNTER 2021-09-18 10:02 | Day surgery (SDC) | payer MEDICAID ==
[~2021-09-18] VITALS: Ht 172.7 cm; Wt 57.2 kg
[2021-09-18] VITALS (10 sets, daily range): BP systolic 77–110; BP diastolic 37–72
[2021-09-18] MEDS ORDERED: LACTATED RINGERS 1,000 ML IV STA (10:06)
[2021-09-18] MEDS ORDERED: LIDOCAINE JELLY 2% 6 ML SYRINGE MM PRN (10:15)
[2021-09-18] MEDS ORDERED: HURRICAINE EXT TUBE (BENZOCAINE) XX PRN (10:15)
--- NOTE | 2021-09-18 10:24 | Progress Note-Pre Operative ---
Pre-Operative Progress Note H&P Reviewed The H&P was reviewed, patient examined and no changes noted. Date Seen by Provider: Sep 18, 2021 Time Seen by Provider: 10:00 Date H&P Reviewed: Sep 18, 2021 Time H&P Reviewed: 10:00 Pre-Operative Diagnosis: nausea/vomiting, hx colitis BRENDA RODRIGES MD Sep 18, 2021 10:24
--- NOTE | 2021-09-18 10:25 | Discharge Inst-Surgical ---
D/C Lap Instructions-KIDO New, Converted, or Re-Newed RX: RX on Chart Follow Up Activity as tolerated High Fiber Diet 25g or more per day Avoid Alcohol, Caffeine, Spicy [place] and Acid foods. Drink 64 fluid oz or more of fluids per day. Symptoms to Report: Fever over 101 degree F, Nausea/Vomiting If any problems/questions: Contact your physician or go to Emergency Room BRENDA RODRIGES MD Sep 18, 2021 10:25
[2021-09-18] MEDS ORDERED: ONDANSETRON 4 MG (ZOFRAN) ORAL DISSOLVE TAB PO PRN (10:30)
[2021-09-18] MEDS ORDERED: ONDANSETRON 4 MG/2 ML (SDV) Z0FRAN IVP PRN (10:30)
[2021-09-18] MEDS ORDERED: MIDAZOLAM 5 MG/5 ML (VERSED) VIAL ONE (11:00)
[2021-09-18] MEDS ORDERED: PROPOFOL INJECTION 50 ML IV ONE ×3 (11:00→11:26)
--- NOTE | 2021-09-18 12:05 | Progress Note-Post Operative ---
Post-Operative Progess Note Surgeon (s)/Sheriff'S Officer (s) Surgeon BRENDA RODRIGES MD Sheriff'S Officer: none Pre-Operative Diagnosis nausea/vomiting, hx colitis Post-Operative Diagnosis reflux esophagitis(grade B), smal HH(2.5cm), moderate gastritis. mild stage 1 ext and int hemorrhoids. Procedure & Operative Findings Date of Procedure 09/18/21 Procedure Performed/Findings EGD with bx. colonoscopy. Anesthesia Type mac Estimated Blood Loss Estimated blood loss (mL): minimal Specimens/Packing Specimens Removed ge jxn, antrum BRENDA RODRIGES MD Sep 18, 2021 12:05
--- NOTE | 2021-09-18 14:18 | Anesthesia-General Post-Op ---
MAC Patient Condition Mental Status/LOC: Same as Preop Cardiovascular: Satisfactory Nausea/Vomiting: Absent Respiratory: Satisfactory Pain: Controlled Complications: Absent Post Op Complications Complications None Follow Up Care/Instructions Patient Instructions None needed. Anesthesiology Discharge Order Discharge Order Patient is doing well, no complaints, stable vital signs, no apparent adverse anesthesia problems. No complications reported per nursing. ALAN OBANDO CRNA Sep 18, 2021 14:18
--- NOTE | 2021-09-18 21:07 | OPERATIVE REPORT ---
DATE OF SERVICE: 09/18/2021 ATTENDING PRIMARY CARE PHYSICIAN: KATIE Miranda. PREOPERATIVE DIAGNOSES: Nausea, vomiting, weight loss, history of colitis identified on CT scan. POSTOPERATIVE DIAGNOSES: Reflux esophagitis [place] grade B, small hiatal hernia 2.5 cm in size, moderate gastritis. No distal obstructions. Mild chronic stage II external and internal hemorrhoids. Remainder of the rectum and colon were normal. There were no mucosal inflammatory changes. PROCEDURE: EGD with biopsy, colonoscopy. SURGEON: Brenda Ndiaye MD. ANESTHESIA: Monitored anesthesia care. ESTIMATED BLOOD LOSS: Minimal. FINDINGS: Reflux esophagitis [place] grade B, small hiatal hernia 2.5 cm in size, moderate gastritis. No distal obstructions. Mild chronic stage II external and internal hemorrhoids. Remainder of the rectum and colon were normal. There were no mucosal inflammatory changes. DISPOSITION: The patient tolerated the procedure well. INDICATIONS: The patient is a 20-year-old female referred over to us for intermittent episodes of nausea and vomiting as well as diarrhea. She states that this occurred approximately six weeks ago and she underwent a CT scan, which did show some areas of inflammation. She reports that the nausea and vomiting is more on an intermittent basis. She does not know if this is food related or not. She also does not report any hematemesis nor coffee ground emesis. DESCRIPTION OF PROCEDURE: The patient was brought to the endoscopy suite, laid in left lateral decubitus position. After adequate IV pain and sedative medications and monitored anesthesia care, the mouthpiece was applied. The endoscope was placed in the mouth, visualizing the pharynx and hypopharyngeal region. Vocal cords, epiglottis and vallecula identified and appeared to be normal. The endoscope was then gently intubated into the esophageal opening and esophagus insufflated. The endoscope was then advanced through the first, second and third portion of esophagus at the level of the GE junction, a reflux esophagitis [place] grade B identified. No ulcers or strictures identified, and a biopsy was taken with forceps with visualization of good hemostasis. The endoscope was then advanced in the stomach and endoscope retroflexed, visualizing a small hiatal hernia approximately 2.5 cm in size. There was a moderate severity gastritis. No formal ulcerations, polyps, or any neoplasms. A biopsy was taken of the antrum to rule out H. pylori with visualization of good hemostasis. The endoscope was then advanced to the pylorus and first and second portion of the duodenum, which appeared normal with no distal obstructions. The endoscope was then slowly withdrawn while taking a second look and suctioning of residual air with no additional findings. A digital rectal examination was performed. Small skin tag was identified. Mild stage I external and internal hemorrhoids. Normal sphincter tone was felt and there were no palpable masses. The endoscope was then intubated to the anus and rectum gently insufflated. The endoscope was then advanced through the valves of [place] of the rectum with no polyps or any neoplasms identified. We then proceeded through the sigmoid colon where no diverticulosis identified. The endoscope was then advanced to the remainder of the descending, transverse and ascending colon to the cecum. These segments were normal. There were no mucosal inflammatory changes as well as no polyps or any neoplasms. The endoscope was then slowly withdrawn while taking a second look and suctioning residual air with no additional findings. The patient tolerated the procedure well. We will recommend the necessary dietary and lifestyle accommodation including small and more frequent meals, avoiding to eating at night as well as head elevation while lying supine. Caffeinated alcoholic beverage cessation should also help as well as spicy, greasy and acidic foods. We will also start her on Protonix 40 mg daily. There is also a chance that this may be gallbladder related and if she continues to have symptoms of nausea and vomiting after eating meals, we will proceed with an ultrasound as well as possible HIDA scan. We will also recommend drinking adequate amounts of water as well as may be adding a fiber supplement to promote soft stools on a daily basis. It is hard to know why. She had colitis, which may have been due to bacterial overgrowth or potential taking an antibiotic for another reason. This may have also been due to just low flow states and being severely dehydrated. If she does have recurrent episodes of crampy abdominal pain as well as diarrhea or rectal bleeding, this would warrant further exploration. Job ID: [id number] DocumentID: [id number] Dictated Date: 09/18/2021 11:44:14 Licensed Esthetician Date: 09/18/2021 21:06:18 Dictated By: BRENDA NDIAYE MD
--- NOTE | 2021-09-19 16:02 | Physician Query-Final Dx ---
SAMI RICHMOND 09/19/21 1602: Clinic Account Progress/Dx Physician Query: Please give diagnosis Dr. Rodriges, can you clarify, postop dx and findings state mild stage II external and internal hemorrhoids. Body of report states stage 1 external and internal hemorrhoids. 1. mild stage II external and internal hemorrhoids. 2. mild stage I external and internal hemorrhoids. Date of Service Sep 18, 2021 at 10:02 BRENDA RODRIGES MD 09/20/21 1116: Clinic Account Progress/Dx DIAGNOSIS: Diagnosis 1. SAMI RICHMOND Sep 19, 2021 16:02 BRENDA RODRIGES MD Sep 20, 2021 11:16
== END 2021-09-18 13:22 | disposition home or self-care (01) ==
LOC: ENDO 10:02
PROVIDERS: ATTEND Surgery
DX: K21.00 Gastro-esophageal reflux disease with esophagitis, without bleeding (principal); K44.9 Diaphragmatic hernia without obstruction or gangrene; K29.50 Unspecified chronic gastritis without bleeding; K64.1 Second degree hemorrhoids; K64.4 Residual hemorrhoidal skin tags; F17.290 Nicotine dependence, other tobacco product, uncomplicated; Z87.19 Personal history of other diseases of the digestive system
CPT/HCPCS: 84703